=== PATIENT | male | born 1995 | race Caucasian/White ===

== ENCOUNTER 2017-08-17 17:04 | Emergency (ER) | payer OTHER ==
[2017-08-17] MEDS: KETOROLAC TROMETHAMINE 10 MG TAB PO (20:09)
== END 2017-08-17 20:13 | disposition home or self-care (01) ==
LOC: M ED 17:04
DX: S93.602A Unspecified sprain of left foot, initial encounter (principal); X58.XXXA Exposure to other specified factors, initial encounter; Y92.89 Other specified places as the place of occurrence of the external cause; Y93.02 Activity, running; Z88.0 Allergy status to penicillin
CPT/HCPCS: 73630

== ENCOUNTER 2018-03-29 07:57 | Emergency (ER) | payer OTHER ==
[2018-03-29] MEDS: NS 1,000 ML IV (08:36)
[2018-03-29] MEDS: ACETAMINOPHEN 325 MG TAB PO (08:37)
[2018-03-29 08:52] LABS: BASO % 0.4 % (0.0-1.0); EOS # 0.1 10^3/uL (0.0-0.50); EOS % 1.6 % (0.0-3.0); HEMATOCRIT 44.2 % (42.0-52.0); HEMOGLOBIN 15.1 g/dl (13.5-17.5); IMMATURE GRANULOCYTE % 0.5 % (0-3.0); LYMPH # 1.3 10^3/uL (1.5-6.5); LYMPH % 15.7 % (24.0-44.0); MEAN CORPUSCULAR HEMOGLOBIN 29.4 pg (27.0-33.0); MEAN CORPUSCULAR HGB CONC 34.2 g/dl (32.0-36.5); MEAN CORPUSCULAR VOLUME 86.2 fl (80.0-96.0); MONO # 0.6 10^3/uL (0.0-0.8); MONO % 6.9 % (0.0-5.0); NEUTROPHILS # 6.2 10^3/uL (1.8-7.7); NEUTROPHILS % 74.9 % (36.0-66.0); PLATELET COUNT, AUTOMATED 266 10^3/uL (150-450); RED BLOOD COUNT 5.13 10^6/uL (4.30-6.10); RED CELL DISTRIBUTION WIDTH 12.2 % (11.5-14.5); WHITE BLOOD COUNT 8.3 10^3/uL (4.0-10.0)
[2018-03-29 08:58] LABS: ANION GAP 7 MEQ/L (8-16); BLOOD UREA NITROGEN 17 MG/DL (7-18); CALCIUM LEVEL 9.2 MG/DL (8.5-10.1); CARBON DIOXIDE LEVEL 27 MEQ/L (21-32); CHLORIDE LEVEL 108 MEQ/L (98-107); CREATININE FOR GFR 0.97 MG/DL (0.70-1.30); GLOMERULAR FILTRATION RATE > 60.0 (>60); GLUCOSE, FASTING 94 MG/DL (70-100); POTASSIUM SERUM 4.4 MEQ/L (3.5-5.1); SODIUM LEVEL 142 MEQ/L (136-145)
[2018-03-29 10:05] LABS: D-DIMER QUANT < 270.0 ng/ml (<500)
== END 2018-03-29 10:38 | disposition home or self-care (01) ==
LOC: M ED 07:57
DX: R55 Syncope and collapse (principal); R94.31 Abnormal electrocardiogram [ECG] [EKG]; Z87.820 Personal history of traumatic brain injury; Z83.3 Family history of diabetes mellitus; Z88.0 Allergy status to penicillin; Z91.048 Other nonmedicinal substance allergy status
CPT/HCPCS: 70450

== ENCOUNTER 2019-03-21 02:16 | Emergency (ER) | payer OTHER ==
[~2019-03-21] VITALS: Ht 190.5 cm; Wt 270.0 kg
[~2019-03-21 02:16] MED LIST: IBUP80TA PO
[2019-03-21] MEDS ORDERED: NS 1,000 ML IV ONE (03:00)
[2019-03-21 03:17] LABS: HEMATOCRIT 42.7 % (42.0-52.0); HEMOGLOBIN 14.8 g/dl (13.5-17.5); MEAN CORPUSCULAR HEMOGLOBIN 29.4 pg (27.0-33.0); MEAN CORPUSCULAR HGB CONC 34.7 g/dl (32.0-36.5); MEAN CORPUSCULAR VOLUME 84.7 fl (80.0-96.0); PLATELET COUNT, AUTOMATED 312 10^3/uL (150-450); RED BLOOD COUNT 5.04 10^6/uL (4.30-6.10); WHITE BLOOD COUNT 11.2 10^3/uL (4.0-10.0)
[2019-03-21] MEDS ORDERED: ISOVUE-370 76% 100ML VIAL (Q9967) As Ordered ONE (03:36)
[2019-03-21 03:37] LABS: ERYTHROCYTE SEDIMENTATION RATE 11 mm/hr (0-15)
[2019-03-21 03:39] LABS: BLOOD UREA NITROGEN 7 MG/DL (7-18); C REACTIVE PROTEIN QUANTITATIV 3.98 MG/DL (0.00-0.30); CALCIUM LEVEL 9.3 MG/DL (8.5-10.1); CARBON DIOXIDE LEVEL 28 MEQ/L (21-32); CHLORIDE LEVEL 105 MEQ/L (98-107); CREATININE FOR GFR 0.96 MG/DL (0.70-1.30); GLOMERULAR FILTRATION RATE > 60.0 (>60); GLUCOSE, FASTING 97 MG/DL (70-100); POTASSIUM SERUM 3.9 MEQ/L (3.5-5.1); SODIUM LEVEL 139 MEQ/L (136-145)
[2019-03-21 03:40] LABS: MONO SCRN NEGATIVE (NEGATIVE)
--- NOTE | 2019-03-21 04:45 | REPVR ---
EXAM: CT Neck With Contrast EXAM DATE/TIME: 03/21/2019 2:55 AM CLINICAL HISTORY: 23 years old, male; Painful swallowing; Additional info: Neck swelling, difficulty swallowing, RO abscess TECHNIQUE: Imaging protocol: Computed tomography images of the neck with intravenous contrast. Radiation optimization: All CT scans at this facility use at least one of these dose optimization techniques: automated exposure control; mA and/or kV adjustment per patient size (includes targeted exams where dose is matched to clinical indication); or iterative reconstruction. Contrast material: ISO; Contrast volume: 75 ml; Contrast route: AC; COMPARISON: No relevant prior studies available. FINDINGS: Sinuses: There is prominent mucoperiosteal thickening in the partially visualized bilateral maxillary sinuses and ethmoid sinus, with a fluid level in the left maxillary sinus. Nasopharynx: There is moderate adenoid hypertrophy. Oropharynx: There is mild hypertrophy of the bilateral palatine tonsils. More prominent hypertrophy of the lingual tonsils is noted. There is no fluid collection or peritonsillar abscess. Hypopharynx: The hypopharynx appears unremarkable. Larynx: The larynx and epiglottis appear unremarkable. Retropharyngeal space: The retropharyngeal tissues appear unremarkable. Submandibular/Parotid glands: The submandibular glands and the parotid glands are unremarkable and symmetric bilaterally. Thyroid: The thyroid gland is normal. Lymph nodes: There are multiple small lymph nodes bilaterally, and several enlarged bilateral jugular chain lymph nodes as well. A right jugulodigastric lymph node measures 16 mm in short axis. The largest left jugular chain lymph node measures 12 mm in short axis. Trachea: The trachea is normal. Lungs: The visualized lungs are grossly clear. Vasculature: The visualized cervical arteries and veins appear unremarkable. Bones/joints: No suspicious osseous lesions. No acute fractures or dislocations. Soft tissues: Unremarkable. No significant soft tissue swelling. IMPRESSION: 1. Evidence acute on chronic sinusitis in the partially visualized paranasal sinuses. 2. Adenoid hypertrophy, mild palatine tonsillar hypertrophy and more prominent lingual tonsil hypertrophy. No evidence of abscess. 3. Bilateral jugular chain lymphadenopathy, likely reactive. Electronically signed by: Malu Huston On 03/21/2019 04:45:14 AM
[2019-03-21 04:55] VITALS: BP 151/65
[2019-03-21] MEDS ORDERED: CLEO300C2 PO (04:56)
[2019-03-21] MEDS ORDERED: CLINDAMYCIN 150 MG CAP PO ONE (05:00)
== END 2019-03-21 05:17 | disposition home or self-care (01) ==
LOC: M ED 02:16
DX: J02.0 Streptococcal pharyngitis (principal)
CPT/HCPCS: 70491; 80048; 83605; 85027; 85652; 86140; 86308; 87040; 87880; 99284; Q9967